=== PATIENT | female | born 1990 | race Caucasian/White ===

== ENCOUNTER 2018-09-03 18:12 | Emergency (ER) | payer OTHER ==
[2018-09-03] MEDS ORDERED: Morphine 10 MG/ML VIAL ONE (18:31)
[2018-09-03] MEDS ORDERED: Sodium Chloride 0.9% 1,000 ML ONE ×2 (18:32→20:42)
[2018-09-03 18:55] LABS: #Basophils 0.1 thou/uL (0.0-0.2); #Eosinphils 0.2 thou/uL (0.0-0.7); #Lymphocytes 2.2 thou/uL (1.20-3.40); #Monocytes 0.3 thou/uL (0.11-0.59); #Neutrophils 12.4 thou/uL (1.40-6.50); %Basophils 0.6 % (0.0-1.0); %Eosinophils 1.3 % (0.0-10.0); %Lymphocytes 14.4 % (21.0-51.0); %Monocytes 2.2 % (0.0-10.0); %Neutrophils 81.4 % (42.0-75.0); Hemoglobin 14.1 g/dL (12.0-16.0); Mean Corpuscular HGB CONC 33.3 g/dL (32.0-36.0); Mean Corpuscular Hemoglobin 29.3 pg (27.0-31.0); Mean Corpuscular Volume 87.9 fL (78.0-98.0); Mean Platelet Volume 7.2 fL (7.4-10.4); Platelet Count 315 thou/uL (130-400); RBC Distribution Width 11.3 % (11.5-14.5); Red Blood Cell (RBC) Count 4.83 mill/uL (4.20-5.40); White Blood Cell (WBC) Count 15.2 thou/uL (4.8-10.8)
[2018-09-03 19:08] LABS: ALT (SGPT) 95 U/L (8-55); AST (SGOT) 150 U/L (5-34); Albumin 4.5 g/dL (3.5-5.0); Alkaline Phosphatase 112 U/L (40-150); Anion Gap 14 mmol/L (10-20); BUN (Urea Nitrogen) 11 mg/dL (7.0-18.7); Bilirubin, Total 0.4 mg/dL (0.2-1.2); Calc. Creatinine Clearance 0 mL/min (70-130); Calcium 9.4 mg/dL (7.8-10.44); Carbon Dioxide 24 mmol/L (22-29); Chloride 106 mmol/L (98-107); Estimated GFR-MDRD 80; Globulin 2.9 g/dL (2.4-3.5); Glucose 102 mg/dL (70-105); Lipase 36 U/L (8-78); Protein, Total 7.4 g/dL (6.0-8.3); Sodium 140 mmol/L (136-145)
[2018-09-03] MEDS ORDERED: Ketorolac Tromethamine 30 MG/ML VIAL ONE (19:36)
--- NOTE | 2018-09-03 19:40 | RAD ---
TWO VIEWS OF CHEST 09/03/18 COMPARISON: None. HISTORY: Cough. FINDINGS: No pneumothorax, pleural fluid, focal consolidation, or alveolar edema. Heart and mediastinal contour s grossly unremarkable. IMPRESSION: No acute findings. POS: [facility]
[2018-09-03] MEDS ORDERED: Azithromycin 250 MG TAB ONE (20:42)
== END 2018-09-03 22:15 | disposition home or self-care (01) ==
LOC: MADERS 18:12
DX: J18.9 Pneumonia, unspecified organism (principal); J20.9 Acute bronchitis, unspecified; Z79.899 Other long term (current) drug therapy
CPT/HCPCS: 71046; 80053; 83690; 85025; 85379; 93005; 96361; 96374; 96375; J1885; J2270; J7050

== ENCOUNTER 2018-10-13 19:16 | Emergency (ER) | payer OTHER ==
[2018-10-13] MEDS ORDERED: Acetaminophen 500 MG TAB ONE ×2 (19:29)
[2018-10-13] MEDS ORDERED: Ibuprofen 400 MG TAB ONE (20:28)
== END 2018-10-13 20:35 | disposition home or self-care (01) ==
LOC: MADERS 19:16
DX: B34.9 Viral infection, unspecified (principal); Z79.899 Other long term (current) drug therapy
CPT/HCPCS: 87081; 87430; 87804; 99283

== ENCOUNTER 2018-10-17 16:28 | Emergency (ER) | payer OTHER ==
[2018-10-17] MEDS ORDERED: Bicillin LA 1.2 MILLION UNITS/2 ML SYRINGE ONE (17:04)
== END 2018-10-17 17:28 | disposition home or self-care (01) ==
LOC: MADERS 16:28
DX: J02.0 Streptococcal pharyngitis (principal); Z79.899 Other long term (current) drug therapy
CPT/HCPCS: 96372; J0561

== ENCOUNTER 2021-07-23 22:26 | Emergency (ER) | payer OTHER, SELFPAY ==
[2021-07-23 23:08] LABS: Pregnancy Test - Urine (BHCG) Negative (Negative); Pregu Control Background? CLEAR/WHITE (CLR/WHITE); Pregu Control Bar Appear? YES (CONTROL BAR); Specific Gravity 1.014 (1.002-1.036)
[2021-07-23] MEDS ORDERED: Sodium Chloride 0.9% 1,000 ML ONE (23:12)
[2021-07-23 23:17] LABS: #Basophils 0.1 thou/uL (0.0-0.2); #Eosinphils 0.2 thou/uL (0.0-0.7); #Lymphocytes 4.5 thou/uL (1.20-3.40); #Monocytes 0.7 thou/uL (0.11-0.59); #Neutrophils 5.3 thou/uL (1.40-6.50); %Basophils 1.2 % (0.0-1.0); %Eosinophils 1.4 % (0.0-10.0); %Lymphocytes 41.6 % (21.0-51.0); %Monocytes 6.2 % (0.0-10.0); %Neutrophils 49.6 % (42.0-75.0); Hemoglobin 13.8 g/dL (12.0-16.0); Mean Corpuscular HGB CONC 32.6 g/dL (32.0-36.0); Mean Corpuscular Hemoglobin 30.2 pg (27.0-31.0); Mean Corpuscular Volume 92.7 fL (78.0-98.0); Platelet Count 270 thou/uL (130-400); RBC Distribution Width 11.4 % (11.5-14.5); Red Blood Cell (RBC) Count 4.55 mill/uL (4.20-5.40); White Blood Cell (WBC) Count 10.8 thou/uL (4.8-10.8)
[2021-07-23] MEDS ORDERED: Lorazepam 2 MG/ML VIAL ONE (23:22)
[2021-07-23 23:35] LABS: ALT (SGPT) 18 U/L (8-55); AST (SGOT) 19 U/L (5-34); Albumin 4.3 g/dL (3.5-5.0); Alkaline Phosphatase 60 U/L (40-110); Anion Gap 12 mmol/L (10-20); BUN (Urea Nitrogen) 15 mg/dL (7.0-18.7); Bilirubin, Total 0.3 mg/dL (0.2-1.2); Calc. Creatinine Clearance 0 mL/min (70-130); Calcium 9.4 mg/dL (7.8-10.44); Carbon Dioxide 25 mmol/L (22-29); Chloride 106 mmol/L (98-107); Globulin 2.9 g/dL (2.4-3.5); Glucose 108 mg/dL (70-105); Potassium 3.9 mmol/L (3.5-5.1); Protein, Total 7.2 g/dL (6.0-8.3); Sodium 139 mmol/L (136-145)
== END 2021-07-24 00:17 | disposition home or self-care (01) ==
LOC: MADERS 22:26
DX: T40.711A Poisoning by cannabis, accidental (unintentional), initial encounter (principal); F41.1 Generalized anxiety disorder; Z85.850 Personal history of malignant neoplasm of thyroid; Z79.899 Other long term (current) drug therapy
CPT/HCPCS: 80053; 81025; 83735; 84443; 85025; 96374; J2060; J7050